=== PATIENT | female | born 1965 | race Caucasian/White ===

== ENCOUNTER 2023-05-10 06:43 | Outpatient (CLI) | payer BC ==
[~2023-05-10] VITALS: Ht 154.9 cm; Wt 91.9 kg
[2023-05-10 07:00] VITALS: BP 130/67; O2SAT 98
[2023-05-10] MEDS ORDERED: VEDOLIZUMAB 300 MG in NS 250 ML IV ONE (07:00)
[2023-05-10 09:00] VITALS: BP 143/78; O2SAT 100
== END 2023-05-10 09:00 | disposition home or self-care (01) ==
LOC: M INFU 06:43
PROVIDERS: ATTEND Internal Medicine Gastroenterology
DX: K50.90 Crohn's disease, unspecified, without complications (principal); Z88.0 Allergy status to penicillin; Z88.5 Allergy status to narcotic agent
CPT/HCPCS: 96365; J3380

== ENCOUNTER 2023-05-24 07:05 | Outpatient (CLI) | payer BC ==
[~2023-05-24] VITALS: Ht 157.5 cm; Wt 98.8 kg
[2023-05-24 07:05] VITALS: BP 163/85; O2SAT 100
[2023-05-24] MEDS ORDERED: VEDOLIZUMAB 300 MG in NS 250 ML IV ONE (07:30)
[2023-05-24 09:05] VITALS: BP 149/88; O2SAT 100
== END 2023-05-24 09:05 ==
LOC: M INFU 07:05
PROVIDERS: ATTEND Internal Medicine Gastroenterology
DX: K50.90 Crohn's disease, unspecified, without complications (principal); Z88.0 Allergy status to penicillin; Z88.5 Allergy status to narcotic agent
CPT/HCPCS: 96365; J3380

== ENCOUNTER 2023-06-21 06:50 | Outpatient (CLI) | payer BC ==
[~2023-06-21] VITALS: Ht 154.9 cm; Wt 93.1 kg
[2023-06-21 06:50] VITALS: BP 175/81; O2SAT 99
[2023-06-21] MEDS ORDERED: VEDOLIZUMAB 300 MG in NS 250 ML IV ONE (07:10)
[2023-06-21 08:25] VITALS: BP 145/83; O2SAT 99
== END 2023-06-21 08:25 | disposition home or self-care (01) ==
LOC: M INFU 06:50
PROVIDERS: ATTEND Internal Medicine Gastroenterology
DX: K50.90 Crohn's disease, unspecified, without complications (principal); Z88.0 Allergy status to penicillin; Z88.5 Allergy status to narcotic agent
CPT/HCPCS: 96365; J3380

== ENCOUNTER → 2023-07-12 | Outpatient (CLI) | payer BC ==
[2023-07-12 11:50] LABS: BASO % 0.5 % (0.0-1.0); EOS # 0.1 10^3/uL (0.0-0.5); EOS % 1.3 % (0.0-3.0); HEMATOCRIT 27.2 % (36.0-47.0); HEMOGLOBIN 7.9 g/dl (12.0-15.5); LYMPH # 1.5 10^3/uL (1.5-5.0); LYMPH % 18.4 % (24.0-44.0); MEAN CORPUSCULAR HEMOGLOBIN 20.8 pg (27.0-33.0); MEAN CORPUSCULAR VOLUME 71.6 fl (80.0-96.0); MONO # 0.6 10^3/uL (0.0-0.8); NEUTROPHILS # 5.6 10^3/uL (1.5-8.5); NEUTROPHILS % 71.5 % (36.0-66.0); PLATELET COUNT, AUTOMATED 520 10^3/uL (150-450); WHITE BLOOD COUNT 7.9 10^3/uL (4.0-10.0)
[2023-07-12 12:13] LABS: BLOOD UREA NITROGEN 11 MG/DL (9-23); CREATININE FOR GFR 0.71 MG/DL (0.55-1.30); GLOMERULAR FILTRATION RATE > 60.0 (>51)
== END ==
LOC: M LAB 11:11
PROVIDERS: ATTEND Internal Medicine Gastroenterology
DX: K50.80 Crohn's disease of both small and large intestine without complications (principal)

== ENCOUNTER 2023-07-13 11:00 | Outpatient (CLI) | payer BC ==
[~2023-07-13] VITALS: Ht 154.9 cm; Wt 92.3 kg
[2023-07-13 16:20] VITALS: BP 142/68; TEMP 98.1; O2SAT 98
== END 2023-07-13 16:00 ==
LOC: M INFU 11:00
PROVIDERS: ATTEND Internal Medicine Gastroenterology
DX: D50.0 Iron deficiency anemia secondary to blood loss (chronic) (principal); Z88.0 Allergy status to penicillin; Z88.5 Allergy status to narcotic agent
CPT/HCPCS: 36430; 86920; P9016

== ENCOUNTER 2023-07-24 09:39 | Day surgery (SDC) | payer BC ==
[~2023-07-24] VITALS: Ht 154.9 cm; Wt 91.4 kg
[~2023-07-24 09:39] MED LIST: NS 1,000 ML IV ONE
[2023-07-24] MEDS ORDERED: AMLO25TA PO (10:31)
[2023-07-24] MEDS ORDERED: OMEP40CA4 PO (10:31)
[2023-07-24] MEDS ORDERED: VENL37.598 PO (10:34)
[2023-07-24] MEDS ORDERED: BISO5TAB14 PO (10:34)
[2023-07-24] MEDS ORDERED: BUDE3CAP PO (10:34)
[2023-07-24 11:28] VITALS: TEMP 98
[2023-07-24 11:58] VITALS: BP 144/78; O2SAT 96
== END 2023-07-24 12:03 | disposition home or self-care (01) ==
LOC: M OPP 09:39
PROVIDERS: ATTEND Internal Medicine Gastroenterology
DX: K63.5 Polyp of colon (principal); K64.4 Residual hemorrhoidal skin tags; K64.8 Other hemorrhoids; K56.699 Other intestinal obstruction unspecified as to partial versus complete obstruction; K52.3 Indeterminate colitis; D50.9 Iron deficiency anemia, unspecified; K29.70 Gastritis, unspecified, without bleeding; Z88.0 Allergy status to penicillin; Z88.5 Allergy status to narcotic agent

== ENCOUNTER 2023-08-16 06:55 | Outpatient (CLI) | payer BC ==
[~2023-08-16] VITALS: Ht 154.9 cm; Wt 92.5 kg
[2023-08-16 07:00] VITALS: BP 154/92; TEMP 97.8; O2SAT 98
[2023-08-16] MEDS ORDERED: VEDOLIZUMAB 300 MG in NS 250 ML IV ONE (07:00)
[2023-08-16 08:35] VITALS: BP 137/70; O2SAT 99
== END 2023-08-16 08:35 ==
LOC: M INFU 06:55
PROVIDERS: ATTEND Internal Medicine Gastroenterology
DX: K50.90 Crohn's disease, unspecified, without complications (principal); Z88.0 Allergy status to penicillin; Z88.5 Allergy status to narcotic agent
CPT/HCPCS: 96365; J3380

== ENCOUNTER → 2023-08-16 | Outpatient (CLI) | payer BC ==
[~2023-08-16] MED LIST changes: +AMLO25TA PO; +BISO5TAB14 PO; +BUDE3CAP PO; -NS 1,000 ML IV ONE; +OMEP40CA4 PO; +VENL37.598 PO
[2023-08-16 08:12] LABS: HEMATOCRIT 31.8 % (36.0-47.0); HEMOGLOBIN 9.7 g/dl (12.0-15.5); MEAN CORPUSCULAR HGB CONC 30.5 g/dl (32.0-36.5); MEAN CORPUSCULAR VOLUME 75.5 fl (80.0-96.0); PLATELET COUNT, AUTOMATED 444 10^3/uL (150-450); RED BLOOD COUNT 4.21 10^6/uL (4.00-5.40); WHITE BLOOD COUNT 6.5 10^3/uL (4.0-10.0)
[2023-08-16 08:44] LABS: IRON (FE) 20 UG/DL (50-170); PERCENT SATURATION 4.7 % (13.2-45.0); TOTAL IRON BINDING CAPACITY 429 UG/DL (250-425)
[2023-08-16 08:46] LABS: FERRITIN 5.1 NG/ML (7.3-270.7); FOLATE > 24.00 NG/ML (>5.4); TOTAL 25(OH) VITAMIN D 24.4 NG/ML (20.0-100.0); VITAMIN B12 LEVEL 358 PG/ML (211-911)
== END ==
LOC: M LAB 07:12
PROVIDERS: ATTEND Internal Medicine Hematology
DX: D50.0 Iron deficiency anemia secondary to blood loss (chronic) (principal)

== ENCOUNTER 2023-09-08 14:23 | Outpatient (CLI) | payer BC ==
[~2023-09-08] VITALS: Ht 154.9 cm; Wt 94.0 kg
[~2023-09-08 14:23] MED LIST changes: +ALBUTEROL SULFATE 2.5MG/0.5ML INH NEB SOLN INH PRN; +EPINEPHrine INJ 1 MG/ML 1ML AMP IM PRN; +NS 1,000 ML IV SCH; +diphenhydrAMINE 50MG/ML VIAL IV PRN; +methylPREDNISolone 125MG 2ML VIAL IV PRN
[2023-09-08 14:35] VITALS: BP 141/63; O2SAT 98
[2023-09-08] MEDS ORDERED: IRON SUCROSE 200 MG in NS 100 ML IV ONE (15:00)
[2023-09-08 16:15] VITALS: BP 168/78; O2SAT 97
== END 2023-09-08 16:15 ==
LOC: M INFU 14:23
PROVIDERS: ATTEND Internal Medicine Hematology
DX: D50.9 Iron deficiency anemia, unspecified (principal); Z88.0 Allergy status to penicillin; Z88.5 Allergy status to narcotic agent
CPT/HCPCS: 96365; J1756

== ENCOUNTER 2023-09-15 13:55 | Outpatient (CLI) | payer BC ==
[~2023-09-15] VITALS: Ht 154.9 cm; Wt 93.8 kg
[2023-09-15 13:55] VITALS: BP 137/70; O2SAT 97
[~2023-09-15 13:55] MED LIST changes: -NS 1,000 ML IV SCH
[2023-09-15] MEDS ORDERED: IRON SUCROSE 200 MG in NS 100 ML OVER 1 HR IV ONE (14:00)
[2023-09-15] MEDS ORDERED: NS 1,000 ML IV SCH (14:00)
[2023-09-15 15:11] VITALS: BP 139/69; O2SAT 96
== END 2023-09-15 15:20 | disposition home or self-care (01) ==
LOC: M INFU 13:55
PROVIDERS: ATTEND Internal Medicine Hematology
DX: D50.9 Iron deficiency anemia, unspecified (principal); Z88.0 Allergy status to penicillin; Z88.5 Allergy status to narcotic agent
CPT/HCPCS: 96365; J1756

== ENCOUNTER 2023-09-22 15:00 | Outpatient (CLI) | payer BC ==
[~2023-09-22] VITALS: Ht 154.9 cm; Wt 94.0 kg
[2023-09-22 15:00] VITALS: BP 134/65; O2SAT 99
[2023-09-22] MEDS ORDERED: IRON SUCROSE 200 MG in NS 100 ML OVER 1 HR IV ONE (15:40)
[2023-09-22] MEDS ORDERED: NS 1,000 ML IV SCH (15:40)
[2023-09-22 17:10] VITALS: BP 159/76; O2SAT 97
== END 2023-09-22 17:10 | disposition home or self-care (01) ==
LOC: M INFU 15:00
PROVIDERS: ATTEND Internal Medicine Hematology
DX: D50.9 Iron deficiency anemia, unspecified (principal); Z88.5 Allergy status to narcotic agent; Z88.0 Allergy status to penicillin
CPT/HCPCS: 96365; J1756

== ENCOUNTER 2023-09-29 15:25 | Outpatient (CLI) | payer BC ==
[~2023-09-29] VITALS: Ht 154.9 cm; Wt 95.4 kg
[~2023-09-29 15:25] MED LIST changes: +NS 1,000 ML IV SCH
[2023-09-29] MEDS ORDERED: IRON SUCROSE 200 MG in NS 100 ML IV ONE (15:30)
[2023-09-29 15:35] VITALS: BP 146/82; O2SAT 98
[2023-09-29 17:10] VITALS: BP 136/68; O2SAT 98
== END 2023-09-29 17:10 | disposition home or self-care (01) ==
LOC: M INFU 15:25
PROVIDERS: ATTEND Internal Medicine Hematology
DX: D50.9 Iron deficiency anemia, unspecified (principal); Z88.0 Allergy status to penicillin; Z88.5 Allergy status to narcotic agent
CPT/HCPCS: 96365; J1756

== ENCOUNTER 2023-10-25 06:36 | Outpatient (CLI) | payer BC ==
[~2023-10-25] VITALS: Ht 154.9 cm; Wt 94.0 kg
[~2023-10-25 06:36] MED LIST changes: -ALBUTEROL SULFATE 2.5MG/0.5ML INH NEB SOLN INH PRN; -EPINEPHrine INJ 1 MG/ML 1ML AMP IM PRN; -NS 1,000 ML IV SCH; -diphenhydrAMINE 50MG/ML VIAL IV PRN; -methylPREDNISolone 125MG 2ML VIAL IV PRN
[2023-10-25 06:50] VITALS: BP 132/71; O2SAT 98
[2023-10-25] MEDS ORDERED: VEDOLIZUMAB 300 MG in NS 250 ML IV ONE (07:00)
[2023-10-25 07:55] VITALS: BP 156/87; O2SAT 99
== END 2023-10-25 07:55 | disposition home or self-care (01) ==
LOC: M INFU 06:36
PROVIDERS: ATTEND Internal Medicine Gastroenterology
DX: K50.90 Crohn's disease, unspecified, without complications (principal); Z88.0 Allergy status to penicillin; Z88.5 Allergy status to narcotic agent
CPT/HCPCS: 96365; J3380

== ENCOUNTER 2023-11-01 15:05 | Outpatient (CLI) | payer BC ==
[~2023-11-01] VITALS: Ht 149.9 cm; Wt 94.0 kg
[2023-11-01 15:05] VITALS: BP 158/78; O2SAT 98
[~2023-11-01 15:05] MED LIST changes: +ALBUTEROL SULFATE 2.5MG/0.5ML INH NEB SOLN INH PRN; +EPINEPHrine INJ 1 MG/ML 1ML AMP IM PRN; +IRON SUCROSE 200 MG in NS 100 ML IV ONE; +NS 1,000 ML IV SCH; +diphenhydrAMINE 50MG/ML VIAL IV PRN; +methylPREDNISolone 125MG 2ML VIAL IV PRN
[2023-11-01 16:45] VITALS: BP 127/62; O2SAT 98
== END 2023-11-01 16:45 | disposition home or self-care (01) ==
LOC: M INFU 15:05
PROVIDERS: ATTEND Internal Medicine Hematology
DX: D50.9 Iron deficiency anemia, unspecified (principal); Z88.0 Allergy status to penicillin; Z88.5 Allergy status to narcotic agent
CPT/HCPCS: 96365; J1756

== ENCOUNTER 2023-12-15 07:57 | Day surgery (SDC) | payer BC ==
[~2023-12-15] VITALS: Ht 154.9 cm; Wt 91.5 kg
[~2023-12-15 07:57] MED LIST changes: -ALBUTEROL SULFATE 2.5MG/0.5ML INH NEB SOLN INH PRN; -EPINEPHrine INJ 1 MG/ML 1ML AMP IM PRN; -IRON SUCROSE 200 MG in NS 100 ML IV ONE; +MAGN400C2 PO; -NS 1,000 ML IV SCH; +THERTAB52 PO; -diphenhydrAMINE 50MG/ML VIAL IV PRN; -methylPREDNISolone 125MG 2ML VIAL IV PRN
[2023-12-15] MEDS: NS 1,000 ML IV ONE (08:16)
[2023-12-15] MEDS ORDERED: propofoL 200 MG/20 ML VIAL As Ordered ONE (08:58)
[2023-12-15 09:36] VITALS: TEMP 97.2
[2023-12-15 09:56] VITALS: BP 133/70; O2SAT 96
== END 2023-12-15 10:01 | disposition home or self-care (01) ==
LOC: M OPP 07:57
PROVIDERS: ATTEND Internal Medicine Gastroenterology
DX: K64.4 Residual hemorrhoidal skin tags (principal); K64.8 Other hemorrhoids; K50.812 Crohn's disease of both small and large intestine with intestinal obstruction; Z79.84 Long term (current) use of oral hypoglycemic drugs; Z79.899 Other long term (current) drug therapy; Z88.0 Allergy status to penicillin; Z88.5 Allergy status to narcotic agent

== ENCOUNTER 2023-12-20 07:05 | Outpatient (CLI) | payer BC ==
[~2023-12-20] VITALS: Ht 154.9 cm; Wt 94.0 kg
[2023-12-20 07:05] VITALS: BP 136/79; O2SAT 98
[2023-12-20] MEDS: VEDOLIZUMAB 300 MG in NS 250 ML IV ONE (07:34)
[2023-12-20 08:15] VITALS: BP 171/78; O2SAT 98
== END 2023-12-20 08:15 | disposition home or self-care (01) ==
LOC: M INFU 07:05
PROVIDERS: ATTEND Internal Medicine Gastroenterology
DX: K50.90 Crohn's disease, unspecified, without complications (principal); Z88.0 Allergy status to penicillin; Z88.5 Allergy status to narcotic agent
CPT/HCPCS: 96365; J3380

== ENCOUNTER 2024-02-05 14:58 | Outpatient (CLI) | payer BC ==
[~2024-02-05] VITALS: Ht 154.9 cm; Wt 94.0 kg
[2024-02-05 15:05] VITALS: BP 125/68; O2SAT 99
[2024-02-05] MEDS: VEDOLIZUMAB 300 MG in NS 250 ML IV ONE (15:32)
[2024-02-05 16:10] VITALS: BP 153/72; O2SAT 99
== END 2024-02-05 16:10 ==
LOC: M INFU 14:58
PROVIDERS: ATTEND Internal Medicine Gastroenterology
DX: K50.919 Crohn's disease, unspecified, with unspecified complications (principal); Z88.0 Allergy status to penicillin; Z88.5 Allergy status to narcotic agent
CPT/HCPCS: 96365; J3380

== ENCOUNTER 2024-03-08 16:33 | Emergency (ER) | payer BC ==
[~2024-03-08] VITALS: Ht 154.9 cm; Wt 93.6 kg
[2024-03-08 18:02] LABS: BASO % 0.4 % (0.0-1.0); EOS # 0.1 10^3/uL (0.0-0.5); EOS % 1.4 % (0.0-3.0); HEMATOCRIT 32.3 % (36.0-47.0); HEMOGLOBIN 10.5 g/dl (12.0-15.5); LYMPH # 2.2 10^3/uL (1.5-5.0); LYMPH % 27.4 % (24.0-44.0); MEAN CORPUSCULAR HEMOGLOBIN 27.6 pg (27.0-33.0); MEAN CORPUSCULAR HGB CONC 32.5 g/dl (32.0-36.5); MONO # 0.8 10^3/uL (0.0-0.8); MONO % 9.4 % (2.0-8.0); NEUTROPHILS # 4.9 10^3/uL (1.5-8.5); NEUTROPHILS % 61.3 % (36.0-66.0); PLATELET COUNT, AUTOMATED 452 10^3/uL (150-450); WHITE BLOOD COUNT 8.1 10^3/uL (4.0-10.0)
[2024-03-08 18:22] LABS: LIPASE 33 U/L (12-53)
[2024-03-08 18:24] LABS: ALBUMIN 3.7 G/DL (3.2-5.2); ALKALINE PHOSPHATASE 98 U/L (46-116); ALT/SGPT 33 U/L (7.0-40); AST/SGOT 18 U/L (<34); BILIRUBIN,DIRECT 0.2 MG/DL (<0.4); BILIRUBIN,TOTAL 0.4 MG/DL (0.3-1.2)
[2024-03-08 18:40] LABS: BLOOD UREA NITROGEN 10 MG/DL (9-23); CALCIUM LEVEL 9.3 MG/DL (8.5-10.1); CARBON DIOXIDE LEVEL 24 MMOL/L (20-31); CHLORIDE LEVEL 107 MMOL/L (98-107); GLOMERULAR FILTRATION RATE > 60.0 (>51); GLUCOSE, FASTING 91 MG/DL (60-100); POTASSIUM SERUM 4.1 MMOL/L (3.5-5.1); SODIUM LEVEL 141 MMOL/L (136-145)
[2024-03-08 19:48] LABS: INR 1.16; PROTHROMBIN TIME 14.5 SECONDS (12.5-14.5)
[2024-03-08] MEDS ORDERED: FENO134C20 PO (20:24)
[2024-03-08] MEDS ORDERED: ROSU10TA61 PO (20:24)
[2024-03-08] MEDS ORDERED: MIRA3350 PO (20:24)
[2024-03-08] MEDS ORDERED: VENL150C43 PO (20:24)
[2024-03-08] MEDS ORDERED: VIT1TAB.8 PO (20:24)
[2024-03-08] MEDS ORDERED: IBUP200C25 PO (20:24)
[2024-03-08] MEDS ORDERED: HOME MED LIST COMPLETE! XX SCH (20:25)
[2024-03-08] MEDS: ACETAMINOPHEN TAB 650MG DOSE (2X325MG) PO ONE (23:37)
[2024-03-09 08:25] VITALS: BP 153/76; TEMP 97.4; O2SAT 99
== END 2024-03-09 08:28 | disposition short-term general hospital (02) ==
LOC: M ED 16:33
DX: K63.2 Fistula of intestine (principal); K50.90 Crohn's disease, unspecified, without complications; K21.9 Gastro-esophageal reflux disease without esophagitis; N28.1 Cyst of kidney, acquired; K76.0 Fatty (change of) liver, not elsewhere classified; I10 Essential (primary) hypertension; Z90.89 Acquired absence of other organs; Z88.0 Allergy status to penicillin; Z88.5 Allergy status to narcotic agent; Z79.1 Long term (current) use of non-steroidal anti-inflammatories (NSAID); Z79.899 Other long term (current) drug therapy

== ENCOUNTER 2024-03-18 14:56 | Outpatient (CLI) | payer BC ==
[~2024-03-18] VITALS: Ht 154.9 cm; Wt 91.8 kg
[~2024-03-18 14:56] MED LIST changes: +FENO134C20 PO; +IBUP200C25 PO; +MIRA3350 PO; +ROSU10TA61 PO; +VENL150C43 PO; +VIT1TAB.8 PO
[2024-03-18 15:05] VITALS: BP 139/71; O2SAT 98
[2024-03-18] MEDS: VEDOLIZUMAB 300 MG in NS 250 ML IV ONE (16:04)
[2024-03-18 16:45] VITALS: BP 141/74; O2SAT 98
== END 2024-03-18 16:45 ==
LOC: M INFU 14:56
PROVIDERS: ATTEND Internal Medicine Gastroenterology
DX: K50.90 Crohn's disease, unspecified, without complications (principal); Z88.0 Allergy status to penicillin; Z88.5 Allergy status to narcotic agent
CPT/HCPCS: 96365; J3380

== ENCOUNTER 2024-04-29 14:53 | Outpatient (CLI) | payer BC ==
[~2024-04-29] VITALS: Ht 154.9 cm; Wt 93.2 kg
[2024-04-29 15:31] VITALS: BP 174/98; O2SAT 97
[2024-04-29] MEDS: VEDOLIZUMAB 300 MG in NS 250 ML IV ONE (15:51)
[2024-04-29 16:35] VITALS: BP 168/90; O2SAT 97
== END 2024-04-29 16:35 ==
LOC: M INFU 14:53
PROVIDERS: ATTEND Internal Medicine Gastroenterology
DX: K50.90 Crohn's disease, unspecified, without complications (principal); Z88.0 Allergy status to penicillin; Z88.5 Allergy status to narcotic agent
CPT/HCPCS: 96365; J3380